=== PATIENT | female | born 1945 ===

== ENCOUNTER 2021-09-01 06:05 | Day surgery (SDC) | payer MEDICARE ==
[~2021-09-01] VITALS: Ht 160 cm; Wt 78.1 kg
[~2021-09-01 06:05] MED LIST: ATOR10 PO; Aspirin EC81 MG PO; PANT40 PO; VALSARTAN-HCTZ1 EAC3 PO
--- NOTE | 2021-09-01 06:34 | NUR ---
09/01/21 0634 Adriana Triana CALL LIGHT WITHIN REACH. TETRACAINE AT 0632 PLEDGETT AT 0634 IN THE RIGHT EYE
== END 2021-09-01 08:20 | disposition home or self-care (01) ==
LOC: ORSCSDS 06:05
PROVIDERS: Ophthalmology
PROC: 08RJ3JZ Replacement of Right Lens with Synthetic Substitute, Percutaneous Approach (ICD-10-PCS; principal; 2021-09-01 07:30)
DX: H25.13 Age-related nuclear cataract, bilateral (principal); I10 Essential (primary) hypertension; K21.9 Gastro-esophageal reflux disease without esophagitis; E66.9 Obesity, unspecified; Z68.30 Body mass index [BMI] 30.0-30.9, adult; Z79.899 Other long term (current) drug therapy
CPT/HCPCS: J2001; J2250; J3010; J3301; J7040; V2632

== ENCOUNTER 2021-09-22 07:10 | Day surgery (SDC) | payer MEDICARE ==
[~2021-09-22] VITALS: Ht 157.5 cm; Wt 77.5 kg
--- NOTE | 2021-09-22 07:34 | NUR ---
09/22/21 0734 Sowmya Coy @ [phone], [place] @ [phone]
== END 2021-09-22 09:10 | disposition home or self-care (01) ==
LOC: ORSCSDS 07:10
PROVIDERS: Ophthalmology
PROC: 08RK3JZ Replacement of Left Lens with Synthetic Substitute, Percutaneous Approach (ICD-10-PCS; principal; 2021-09-22 08:30)
DX: H25.12 Age-related nuclear cataract, left eye (principal); I10 Essential (primary) hypertension; K21.9 Gastro-esophageal reflux disease without esophagitis; E66.9 Obesity, unspecified; Z68.31 Body mass index [BMI] 31.0-31.9, adult; Z79.899 Other long term (current) drug therapy
CPT/HCPCS: J2001; J2250; J3010; J3301; J7040; V2632

== ENCOUNTER → 2023-05-02 | Outpatient (CLI) | payer OTHER | LOC: LAB SHORT 17:31 → LAB 17:31 | DX: L98.9 Disorder of the skin and subcutaneous tissue, unspecified (principal) | CPT/HCPCS: 87070; 87205 ==